=== PATIENT | male | born 1950 | race Caucasian/White ===

== ENCOUNTER 2017-11-29 06:22 | Emergency (ER) | payer OTHER, MEDICARE ==
[2017-11-29 07:22] VITALS: TEMP 98.4; BMI 19.1
--- NOTE | 2017-11-29 07:26 | PDOC ---
Attending Attestation - HPI HPI: 11/29/17 07:47 The patient is a 67 year old male, with a significant past medical history of mitral valve prolapse repair(1 month ago), hyperlipidemia, and depression, who presents to the emergency department with right sided chest pain at surgical incision site for approximately 3 hours. Patient reports he had a mitral valve prolapse repair, about 1 month ago, where a ring was put in for stabilization. Patient reports associated pain at surgical incision site since waking up this morning. He reports taking Tramadol for his symptoms with minimal relief. He denies any shortness of breath, diaphoresis, palpitations, or lower extremity edema. He denies any nausea or vomiting. He denies any fever or chills. He denies any recent travel or sick contacts. Patient reports following up at [facility] 1 week ago, where he had an ECG, which was notable for AFib(patient is on blood thinners). Allergies: NKDA Past Surgical History: Mitral Valve Prolapse Repair(10/28/17) Social History: Social ETOH use. Non smoker. No recreational drug use. - Medical Decision Making 11/29/17 07:47 Documentation prepared by Carleen Patiño, acting as medical claims assistant for Luda Gil MD. <Carleen Patiño - Last Filed: 11/29/17 07:57> - Resident Resident Name: Shay Alva - ED Attending Attestation I have performed the following: I have examined & evaluated the patient, The case was reviewed & discussed with the resident, I agree w/resident's findings & plan, Exceptions are as noted - Physicial Exam PE: GENERAL: Awake, alert, and fully oriented, in no acute distress. Appears uncomfortable. HEAD: No signs of trauma EYES: PERRLA, EOMI, sclera anicteric, conjunctiva clear ENT: Auricles normal inspection, hearing grossly normal, nares patent, oropharynx clear without exudates. Moist mucosa NECK: Normal ROM, supple, no lymphadenopathy, JVD, or masses LUNGS: Breath sounds equal, clear to auscultation bilaterally. No wheezes, and no crackles. +Healing lesions to the R chest, no tenderness at the surgical sites, no skin changes. HEART: Regular rate and rhythm, normal S1 and S2, no murmurs, rubs or gallops ABDOMEN: Soft, nontender, normoactive bowel sounds. No guarding, no rebound. No masses EXTREMITIES: Normal range of motion, no edema. No clubbing or cyanosis. No cords, erythema, or tenderness NEUROLOGICAL: Cranial nerves II through XII grossly intact. Normal speech, normal gait. Motor and sensation intact. SKIN: Warm, Dry, normal turgor, no rashes or lesions noted. - Medical Decision Making Case d/w covering physician at [facility]. Will obtain echo, CXR, labs in ED. Will give him his morning meds. Will recall [facility] once all results are complete. <Luda Gil - Last Filed: 11/29/17 10:15> Heart Score/ECG Review - ECG Impressions Comment:: EKG read 07:39- tachycardic 113 bpm, poss atrial flutter (rhythm somewhat obscured by tachycardia) <Luda Gil - Last Filed: 11/29/17 10:15>
--- NOTE | 2017-11-29 07:26 | PDOC ---
History of Present Illness - General Chief Complaint: Chest Pain Stated Complaint: RIGHT SIDE PAIN Time Seen by Provider: 11/29/17 07:24 - History of Present Illness Initial Comments: 11/29/17 07:24 Mr. Kumar is a 67 yo male w/ pmh of mitral valve repair (10/28/17 after MVP with resulting afib), HTN, HLD who presents complaining of 1 day history of right sided chest pain after waking up this morning. He reports it hurts under one of his incision sites as of today. The patient denies shortness of breath, headache and dizziness. Denies fever, chills, nausea, vomit, diarrhea and constipation. Denies dysuria, frequency, urgency and hematuria. Allergies: NKDA Past History - Past Medical History Allergies/Adverse Reactions: Allergies Allergy/AdvReac Type Severity Reaction Status Date / Time No Known Allergies Allergy Verified 11/29/17 07:15 Home Medications: Ambulatory Orders Amiodarone HCl [Cordarone -] 200 mg PO DAILY 11/29/17 Methylprednisolone [Medrol -] 4 mg PO ASDIR #20 tablet 11/29/17 Metoprolol Succinate [Toprol Xl -] 50 mg PO DAILY 11/29/17 Tramadol HCl [Ultram] 50 mg PO Q8H PRN 11/29/17 COPD: No Hypercholesterolemia: Yes Psychiatric Problems: Yes (depression) - Surgical History Cardiac Surgery: Yes (mitral valve repair-1 month ago) - Suicide/Smoking/Psychosocial Hx Smoking History: Never smoked Hx Alcohol Use: Yes (SOCIAL) Review of Systems - Review of Systems Comments:: 11/29/17 07:25 GENERAL/CONSTITUTIONAL: No fever or chills. No weakness. HEAD, EYES, EARS, NOSE AND THROAT: No change in vision. No ear pain or discharge. No sore throat. CARDIOVASCULAR: +Right sided chest pain as described. No shortness of breath RESPIRATORY: No cough, wheezing, or hemoptysis. GASTROINTESTINAL: No nausea, vomiting, diarrhea or constipation. GENITOURINARY: No dysuria, frequency, or change in urination. MUSCULOSKELETAL: No joint or muscle swelling or pain. No neck or back pain. SKIN: No rash NEUROLOGIC: No headache, vertigo, loss of consciousness, or change in strength/ sensation. ENDOCRINE: No increased thirst. No abnormal weight change HEMATOLOGIC/LYMPHATIC: No anemia, easy bleeding, or history of blood clots. ALLERGIC/IMMUNOLOGIC: No hives or skin allergy. *Physical Exam - Vital Signs Last Vital Signs Temp Pulse Resp BP Pulse Ox 98.4 F 101 H 19 112/64 99 11/29/17 07:15 11/29/17 07:15 11/29/17 07:15 11/29/17 07:15 11/29/17 07:15 - Physical Exam Comments: 11/29/17 07:25 GENERAL: Awake, alert, and fully oriented, in no acute distress HEAD: No signs of trauma, normocephalic, atraumatic EYES: PERRLA, EOMI, sclera anicteric, conjunctiva clear ENT: Auricles normal inspection, hearing grossly normal, nares patent, oropharynx clear without exudates. Moist mucosa NECK: Normal ROM, supple, no lymphadenopathy, JVD, or masses LUNGS: No distress, speaks full sentences, clear to auscultation bilaterally HEART: Regular rate and rhythm, normal S1 and S2, no murmurs, rubs or gallops, peripheral pulses normal and equal bilaterally. ABDOMEN: Soft, nontender, normoactive bowel sounds. No guarding, no rebound. No masses EXTREMITIES: Normal inspection, Normal range of motion, no edema. No clubbing or cyanosis. NEUROLOGICAL: Cranial nerves II through XII grossly intact. Normal speech, normal gait, no focal sensorimotor deficits SKIN: Warm, Dry, normal turgor, no rashes or lesions noted. ED Treatment Course - LABORATORY CBC & Chemistry Diagram: 11/29/17 15:11 11/29/17 07:57 Medical Decision Making - Medical Decision Making 11/29/17 15:37 Mr. Kumar is a 67 yo male w/ pmh as described who presents for evaluation of chest pain in the setting of recent cardiac surgery. Patient initial labs concerning for elevated WBC to 15.8. Echocardiogram and Chest CT ordered for evaluation along with blood cultures. Patient CT surgeon consulted as well at [phone] (Dr. Márquez). Echo and Chest CT negative for acute process. EKG normal. Repeat labs improved as below. CT surgeon's office suggested steroid course for pericardial symptoms and outpatient follow-up. Complying with this course of action given patient's stable status, good clinical exam, and reassuring repeat labs. *DC/Admit/Observation/Transfer Diagnosis at time of Disposition: Chest pain Qualifiers: Chest pain type: unspecified Qualified Code(s): R07.9 - Chest pain, unspecified - Discharge Dispostion Disposition: HOME - Prescriptions Prescriptions: Methylprednisolone [Medrol -] 4 mg PO ASDIR #20 tablet - Referrals Referrals: ON STAFF,NOT [Primary Care Provider] - - Patient Instructions Printed Discharge Instructions: DI for Atypical Chest Pain Additional Instructions: Please follow-up with Cardiothoracic surgeon for further evaluation. Return to ER if pain continues, increases, or you experience fever, chills, or other concerning symptoms. We hope you feel better soon. - Post Discharge Activity
[2017-11-29] MEDS ORDERED: morphine CARPU-JECT 2 MG/1 ML DISP.SYRIN IVPUSH ONE (07:47)
[2017-11-29] MEDS ORDERED: ONDANSETRON 4 MG/2 ML VIAL IVPUSH ONE (07:50)
[2017-11-29] MEDS ORDERED: SODIUM CHLORIDE 1,000 ML IV STA (07:51)
[2017-11-29] MEDS ORDERED: AMIODARONE HCL 200 MG TABLET (FP) PO ONE (07:57)
[2017-11-29] MEDS ORDERED: ONDANSETRON 4 MG/2 ML VIAL ONE (08:06)
[2017-11-29] MEDS ORDERED: morphine CARPU-JECT 2 MG/1 ML DISP.SYRIN ONE (08:06)
[2017-11-29] MEDS ORDERED: AMIODARONE HCL 200 MG TABLET (FP) ONE (08:06)
[2017-11-29 08:34] LABS: BASO % 0.6 % (0-2.0); EOS % 2.8 % (0-4.5); HEMATOCRIT 40.9 % (35.4-49); MCH 31.8 pg (25.7-33.7); MCHC 34.1 g/dl (32.0-35.9); MEAN CELL VOLUME 93.2 fl (80-96); MEAN PLT VOLUME 8.1 fl (7.5-11.1); MONO % 10.1 % (3.8-10.2); NEUT % 80.5 % (42.8-82.8); PLATELET COUNT 181 K/MM3 (134-434); RBC 4.39 M/mm3 (4.00-5.60); RDW 13.3 % (11.9-15.9); WHITE BLOOD COUNT 15.8 K/mm3 (4.0-10.0)
[2017-11-29 08:58] LABS: ALBUMIN 3.5 g/dl (3.4-5.0); ANION GAP 6 (8-16); BILIRUBIN,TOTAL 1.2 mg/dL (0.2-1.0); BLOOD UREA NITROGEN 23 mg/dL (7-18); CALCIUM 8.8 mg/dL (8.5-10.1); CHLORIDE 108 mmol/L (98-107); CO2 28 mmol/L (21-32); CREATININE 1.3 mg/dL (0.7-1.3); GLUCOSE,RANDOM 95 mg/dL (74-106); SGPT/ALT 55 U/L (12-78); SODIUM 142 mmol/L (136-145); TOT PROT 6.7 g/dl (6.4-8.2)
[2017-11-29 09:01] LABS: ALK PHOS 113 U/L (45-117)
[2017-11-29 09:05] LABS: POTASSIUM 5.2 mmol/L (3.5-5.1); SGOT/AST 26 U/L (15-37)
--- NOTE | 2017-11-29 11:20 | EKG ---
Test Reason : Blood Pressure : / mmHG Vent. Rate : 113 BPM Atrial Rate : 242 BPM P-R Int : 000 ms QRS Dur : 112 ms QT Int : 364 ms P-R-T Axes : 000 -06 024 degrees QTc Int : 499 ms ATRIAL FLUTTER WITH VARIABLE A-V BLOCK ABNORMAL ECG NO PREVIOUS ECGS AVAILABLE Confirmed by RIMA LANIER MD ([id number]) on 11/29/2017 11:20:00 AM Referred By: Confirmed By:RIMA LANIER MD
[2017-11-29 12:19] VITALS: BP 125/73; PULSE 83
[2017-11-29 15:29] LABS: EOS % 3.8 % (0-4.5); HEMATOCRIT 39.1 % (35.4-49); HEMOGLOBIN 13.2 GM/dL (11.7-16.9); LYMPH % 14.6 % (8-40); MCH 31.4 pg (25.7-33.7); MCHC 33.7 g/dl (32.0-35.9); MEAN CELL VOLUME 93.1 fl (80-96); MEAN PLT VOLUME 8.2 fl (7.5-11.1); MONO % 12.2 % (3.8-10.2); NEUT % 68.4 % (42.8-82.8); PLATELET COUNT 178 K/MM3 (134-434); RDW 13.4 % (11.9-15.9); WHITE BLOOD COUNT 8.2 K/mm3 (4.0-10.0)
[2017-11-29] MEDS ORDERED: methylPREDNISolone 8 MG TABLET PO ONE (15:45)
== END 2017-11-29 16:47 | disposition home or self-care (01) ==
LOC: JER 06:22
PROC: 3E0337Z Introduction of Electrolytic and Water Balance Substance into Peripheral Vein, Percutaneous Approach (ICD-10-PCS; principal; 2017-11-29)
PROC: 3E033GC Introduction of Other Therapeutic Substance into Peripheral Vein, Percutaneous Approach (ICD-10-PCS; 2017-11-29)
PROC: 3E033NZ Introduction of Analgesics, Hypnotics, Sedatives into Peripheral Vein, Percutaneous Approach (ICD-10-PCS; 2017-11-29)
DX: R07.89 Other chest pain (principal); I10 Essential (primary) hypertension; E78.00 Pure hypercholesterolemia, unspecified; F32.9 Major depressive disorder, single episode, unspecified; Z98.890 Other specified postprocedural states
CPT/HCPCS: 36415; 71260-TC; 80053; 82550; 84484; 85025; 87040; 93005; 93010; 93306-TC; 96361; 96374; 96375; 99285-25; J7030

== ENCOUNTER 2019-04-30 10:49 | Emergency (ER) | payer OTHER, MEDICARE ==
[2019-04-30 10:54] VITALS: BMI 20.2
[2019-04-30 11:14] LABS: BASO % 0.9 % (0-2.0); EOS % 3.4 % (0-4.5); HEMATOCRIT 43.2 % (35.4-49); HEMOGLOBIN 15.3 GM/dL (11.7-16.9); LYMPH % 28.7 % (8-40); MCH 32.5 pg (25.7-33.7); MCHC 35.3 g/dl (32.0-35.9); MEAN CELL VOLUME 92.1 fl (80-96); MEAN PLT VOLUME 7.8 fl (7.5-11.1); MONO % 13.4 % (3.8-10.2); NEUT % 53.6 % (42.8-82.8); PLATELET COUNT 248 K/MM3 (134-434); RBC 4.69 M/mm3 (4.00-5.60); RDW 12.9 % (11.9-15.9); WHITE BLOOD COUNT 6.1 K/mm3 (4.0-10.0)
[2019-04-30 11:30] LABS: INR 0.95 (0.83-1.09); PROTHROMBIN TIME (PATIENT) 11.2 SEC (9.7-13.0)
[2019-04-30 11:40] LABS: ALBUMIN 3.8 g/dl (3.4-5.0); BILIRUBIN,TOTAL 0.8 mg/dL (0.2-1); BLOOD UREA NITROGEN 20.9 mg/dL (7-18); CALCIUM 9.3 mg/dL (8.5-10.1); CREATININE 1.1 mg/dL (0.55-1.3); POTASSIUM 4.6 mmol/L (3.5-5.1); TOT PROT 6.9 g/dl (6.4-8.2)
--- NOTE | 2019-04-30 11:49 | PDOC ---
History of Present Illness - General Chief Complaint: Blurry Vision Stated Complaint: VISION Time Seen by Provider: 04/30/19 11:00 History Source: Patient Exam Limitations: No Limitations - History of Present Illness Initial Comments: 04/30/19 17:11 HPI: 68M PMH HTN, MVP s/p MV repair, pAfib presenting after experiencing an episode of vision "being out of focus" yesterday around 6pm. Symptoms resolved on its own after less than 5 minutes where the patient noticed that when he covered either eye the symptoms would improve. Denies loss of visual field, headache, lightheadedness, dizziness, numbness, tingling, weakness, changes in hearing. Denies cp/sob, f/c, n/v. Pt was recently discontinued off eliquis a few weeks by his wound care physician (Dr. Sudarshan Cardoza, [facility]). Pt states he has had a prior episodes of similar symptoms a few months ago while on eliquis. PMH: as above. Lasix 15 years ago, wears glasses for reading and sports MEDs: per chart, Started meloxicam 2 days ago for foot pain. NKDA PCP - [place] provider w/ office in the [place] NIH Stroke Scale - Last Known Well Date/Time & Onset Date Last Known Well: 04/29/19 Time Last Known Well: 18:00 (sx resolved ) - Initial Evaluation Level of consciousness: Alert Ask patient the month and their age: Answers both correctly Ask patient to open & close eyes; make fist and let go: Obeys both correctly Best gaze (horizontal eye movement): Normal Visual field testing: No visual field loss Facial paresis (Show teeth/raise eyebrows/close eyes tight): Normal symmetrical movement Motor Function: Left Arm: Normal Motor Function: Right Arm: Normal (extends arm 90 (or 45) degrees for 10 seconds without drift Motor Function: Left Leg: Normal (extends leg 30 degrees for 5 seconds without drift) Motor Function: Right Leg: Normal (extends leg 30 degrees for 5 seconds without drift) Limb Ataxia: No ataxia Sensory(Use pinprick test arms,legs,trunk,face/side to side): Normal Best language (Describe picture, name items, read sentences): No Aphasia Dysarthria (read several words): Normal articulation Extinction and Inattention: No abnormality - Total Score NIH Stroke Scale Score: 0 Past History - Past Medical History Allergies/Adverse Reactions: Allergies Allergy/AdvReac Type Severity Reaction Status Date / Time No Known Allergies Allergy Verified 04/30/19 10:54 Home Medications: Ambulatory Orders Amiodarone HCl [Cordarone -] 200 mg PO DAILY 11/29/17 Methylprednisolone [Medrol -] 4 mg PO ASDIR #20 tablet 11/29/17 Metoprolol Succinate [Toprol Xl -] 50 mg PO DAILY 11/29/17 Tramadol HCl [Ultram] 50 mg PO Q8H PRN 11/29/17 Meloxicam 15 mg PO DAILY 04/30/19 COPD: No Hypercholesterolemia: Yes Psychiatric Problems: Yes (depression) - Surgical History Cardiac Surgery: Yes (mitral valve repair-1 month ago) - Psycho Social/Smoking Cessation Hx Smoking History: Never smoked Information on smoking cessation initiated: No Hx Alcohol Use: Yes (SOCIAL) Review of Systems - Review of Systems Able to Perform ROS?: Yes Comments:: 04/30/19 17:12 ROS: CONSTITUTIONAL: Denies F / C HEENT: Endorses change in vision. Denies headache, lightheadedness, dizziness, changes in hearing RESP: Denies SOB CARD: Denies chest pain, palpitations GI: Denies N / V / D, abdominal pain, bloody stool : Denies dysuria, frequency NEURO: Denies numbness, tingling, weakness Is the patient limited Swedish proficient: No *Physical Exam - Vital Signs Last Vital Signs Temp Pulse Resp BP Pulse Ox 97.8 F 67 18 140/75 98 04/30/19 10:51 04/30/19 10:51 04/30/19 10:51 04/30/19 10:51 04/30/19 10:51 - Physical Exam Comments: 04/30/19 17:12 PE: GEN: Well appearing, NAD, comfortable. AAOx3 HEENT: NC/AT. CN II-XII intact, EOMI, PERRLA. Visual reis intact. No facial asymmetry. Normal voice. Supple neck w/ FROM. CV: S1/S2, RRR, no m/r/g LUNG: CTAB, no wheezes, crackles, rales, rhonchi. GI: soft, ndnt, +BS, no guarding, no rebound. EXTREMITIES: No LE edema. No obvious deformities of all extremities. SKIN: warm, dry, normal turgor PSYCH: normal mood and affect NEURO: 10/30 UE LE b/l strength. Symmetric sensation throughout. No pronator drift. Neg Romberg. No FTN or heel-walden ataxia. Ambulates w/ normal gait. ED Treatment Course - LABORATORY CBC & Chemistry Diagram: 04/30/19 11:00 04/30/19 11:00 - ADDITIONAL ORDERS Additional order review: Laboratory Results 04/30/19 11:00 PT with INR 11.20 INR 0.95 04/30/19 11:00 RBC 4.69 MCV 92.1 MCHC 35.3 RDW 12.9 MPV 7.8 Neutrophils % 53.6 D Lymphocytes % 28.7 D Monocytes % 13.4 H Eosinophils % 3.4 Basophils % 0.9 - RADIOLOGY Radiology Studies Ordered: Category Date Time Status HEAD CT WITHOUT CONTRAST [CT] Stat CT Scan 04/30/19 11:35 Ordered Medical Decision Making - Medical Decision Making 04/30/19 11:40 MDM: 68M presenting a day after having a 5 minute episode of self-resolving visual symptoms consistent w/ diplopia. DDx - TIA, central cause vs peripheral - NIHSS = 0 - EKG - CT head - labs - contact cardiology 04/30/19 13:05 labs reviewed EKG 04/30/19 11:42 HR 59 WV 166 QRS 104 QTc 415 Sinus bradycardia call placed out to [facility] cardiology 04/30/19 13:10 Discussed pt w/ [place] Dr. Taylor covering for Dr. Cardoza - pt should call Dr. Cardoza the next day for f/u - pt should consider restarting eliquis 04/30/19 13:28 Discussed pt w/ Neurologist Dr. Gunderson - he will see patient - given normal neurologic exam no role for admission - restart eliquis - carotid doppler 04/30/19 16:43 After initial conversation w/ Dr. Gunderson, ED team was unable to reach him despite multiple calls out ED team felt that observation was necessary at this junction Pt refused admission and will leave against medical advice Patient is determined to be of sound mind and reasoning. The patient fully understands the care they are refusing and the risks associated with leaving before complete medical evaluation as explained by the medical team. The patient has been provided with a discharge summary, return precautions, and the reassurance that the Emergency Department will resume workup if the patient changes their mind. Immediate primary care and cardiology follow up has been urged. 04/30/19 17:08 ED team discussed yuliya w/ Dr Gunderson who stated that he was going to follow up with the patient in his office Discussed cody w/ patient who states he has some leftover and will contact his wound care physician tomorrow before restarting citing concerns that he is on NSAIDs for pain at the moment. Patient left AMA, see above. Discharge - Discharge Information Problems reviewed: Yes Clinical Impression/Diagnosis: Change in vision Condition: Stable Disposition: AGAINST MEDICAL ADVICE - Admission No - Follow up/Referral Referrals: Delon Gunderson MD [Staff Physician] - - Patient Discharge Instructions Patient Printed Discharge Instructions: DI for Visual Field Disturbances Additional Instructions: You are leaving against medical advice and refusing the complete evaluation of your change in vision The risks of doing so have been explained to you by the Emergency Team You may return to the Emergency Department at anytime to complete your evaluation IT IS IMPORTANT THAT YOU FOLLOW UP WITH YOUR ACTIVITY SPECIALIST IN THE NEXT 1 DAY. We have provided you a referral to the Neurologist, please schedule a follow up appointment in the next 3-5 days. Follow up with your primary care doctor regarding this ED visit in the next 3-5 days. Immediately return to the closest Emergency Department if you experience new, worsening, or concerning symptoms. - Post Discharge Activity
--- NOTE | 2019-04-30 12:10 | PDOC ---
Documentation entered by Javier Conner SCRIBE, acting as scribe for Jacob Roa MD. Jacob Roa MD: This documentation has been prepared by the Ubaldo muller Daniel, SCRIBE, under my direction and personally reviewed by me in its entirety. I confirm that the documentation accurately reflects all work, treatment, procedures, and medical decision making performed by me. Attending Attestation - Resident Resident Name: Delon Morel - ED Attending Attestation I have performed the following: I have examined & evaluated the patient, The case was reviewed & discussed with the resident, I agree w/resident's findings & plan, Exceptions are as noted - HPI HPI: 04/30/19 11:57 The patient is a 68 year old male with a past medical history of HTN, mitral valve prolapse s/p repair, and afib (previously on eliquis) here today for evaluation of vision problems. The patient reports that yesterday around 6 PM he had a sudden onset of his eyes not working together that lasted for 5 minutes. He states that he didnt have blurry or double vision but felt like his eyes were crossed. He reports that covering one eye relieved his symptoms somewhat. He notes one prior episode of similar symptoms 2 months ago. Patient denies headache, lightheadedness. Denies fever, chills. Denies chest pain, shortness of breath. Denies nausea, vomiting, diarrhea, abdominal pain. Denies neurological symptoms. Allergies: NKA - Physicial Exam PE: 04/30/19 11:54 GENERAL: The patient is awake, alert, and fully oriented, Nontoxic - in no acute distress. HEAD: Normocephalic, atraumatic. EYES: extraocular movements intact, visual reis intact, sclera anicteric, conjunctiva clear. ENT: Normal voice, Moist mucous membranes. NECK: Normal range of motion, supple LUNGS: Breath sounds equal, clear to auscultation bilaterally. No wheezes, no rhonchi, no rales. HEART: Regular rate and rhythm, normal S1 and S2 without murmur, rub or gallop. ABDOMEN: Soft, nontender, No guarding, no rebound. No CVA tenderness EXTREMITIES: Normal range of motion, no edema. NEUROLOGICAL: No facial assymetry, Normal speech, moving al 4 extremities spontaneously and symmetrically, normal gait. PSYCH: Normal mood, normal affect. SKIN: Warm, Dry, normal turgor, - Medical Decision Making 04/30/19 11:55 consider possible TIA due to recent hx of afib and being taken off eliquis pt curent asymptomatic with normal neuro exam. not tpa candidate 04/30/19 13:39 pts labs were viewed pt continues to be asympomatic case dw with covering cardioloist had mentioned pt was taken off a/c due to neg afib on outpatient monitorring, however unclear reasoning. case dw neurology - dr valero will come evaluate the pt re dispo Heart Score/ECG Review - ECG Impressions Comment:: 04/30/19 13:07 Twelve-lead EKG was performed and reviewed by me. There is normal sinus rhythm with rate of 59 normal axis The intervals are normal. There is normal R wave progression There are no ST or T wave abnormalities. Impression: sinus bradycadia
[2019-04-30 16:09] VITALS: BP 143/72; PULSE 89; TEMP 98.4
--- NOTE | 2019-05-01 10:08 | EKG ---
Test Reason : Blood Pressure : / mmHG Vent. Rate : 059 BPM Atrial Rate : 059 BPM P-R Int : 166 ms QRS Dur : 104 ms QT Int : 420 ms P-R-T Axes : 056 018 026 degrees QTc Int : 415 ms SINUS BRADYCARDIA OTHERWISE NORMAL ECG WHEN COMPARED WITH ECG OF 29-NOV-2017 07:25, SINUS RHYTHM HAS REPLACED ATRIAL FLUTTER VENT. RATE HAS DECREASED BY 54 BPM Confirmed by YANNICK ARROYO, RIMA ([id number]) on 05/01/2019 10:07:41 AM Referred By: Confirmed By:RIMA LANIER MD
== END 2019-04-30 17:05 | disposition left against medical advice (07) ==
LOC: JER 10:49
DX: H53.8 Other visual disturbances (principal); H53.2 Diplopia; I10 Essential (primary) hypertension; I48.91 Unspecified atrial fibrillation; E78.00 Pure hypercholesterolemia, unspecified; F32.9 Major depressive disorder, single episode, unspecified; Z95.4 Presence of other heart-valve replacement; Z98.890 Other specified postprocedural states
CPT/HCPCS: 36415; 70450-TC; 80053; 85025; 85610; 93005; 93010; 99282-25

== ENCOUNTER 2021-07-14 17:10 | Inpatient (IN) | payer OTHER, MEDICARE ==
[2021-07-14 17:27] VITALS: BMI 20.7
[2021-07-14] MEDS ORDERED: ASPIRIN 81 MG CHEWABLE TABLETS PO ONE (18:23)
[2021-07-14] MEDS ORDERED: ASPIRIN 81 MG CHEWABLE TABLETS ONE (18:30)
[2021-07-14 18:37] LABS: BASO % 0.6 % (0-2.0); EOS % 2.6 % (0-4.5); HEMATOCRIT 41.8 % (35.4-49); HEMOGLOBIN 14.1 GM/dL (11.7-16.9); LYMPH % 27.7 % (8-40); MCH 31.1 pg (25.7-33.7); MCHC 33.8 g/dl (32.0-35.9); MEAN CELL VOLUME 92.1 fl (80-96); MEAN PLT VOLUME 7.9 fl (7.5-11.1); MONO % 11.5 % (3.8-10.2); NEUT % 57.6 % (42.8-82.8); PLATELET COUNT 216 10^3/uL (134-434); RBC 4.54 M/mm3 (4.00-5.60); RDW 13.3 % (11.9-15.9); WHITE BLOOD COUNT 6.4 K/mm3 (4.0-10.0)
[2021-07-14 18:53] LABS: INR 1.07 (0.83-1.09); PROTHROMBIN TIME (PATIENT) 12.3 SEC (9.7-13.0)
[2021-07-14 18:54] LABS: CHLORIDE 105 mmol/L (98-107); SODIUM 139 mmol/L (136-145)
[2021-07-14 18:55] LABS: ACTIVATED PTT 27.8 SECONDS (25.2-36.5)
[2021-07-14 18:56] LABS: ALBUMIN 3.6 g/dl (3.4-5.0); CALCIUM 9.4 mg/dL (8.5-10.1)
[2021-07-14 18:57] LABS: ANION GAP 6 MMOL/L (8-16); BLOOD UREA NITROGEN 21.3 mg/dL (7-18); CO2 28 mmol/L (21-32); GLUCOSE,RANDOM 88 mg/dL (74-106)
[2021-07-14 18:59] LABS: CHOLESTEROL 159 mg/dL (50-200); SGOT/AST 11 U/L (15-37); SGPT/ALT 17 U/L (13-61); TRIGLYCERIDES 47 mg/dL (0-150)
[2021-07-14 19:01] LABS: BILIRUBIN,TOTAL 0.8 mg/dL (0.2-1); LDL CHOLESTEROL (ONLY SJRH) 90 mg/dL (5-100); TOT PROT 6.5 g/dl (6.4-8.2)
[2021-07-14 19:02] LABS: ALK PHOS 65 U/L (45-117); HDL CHOLESTEROL 60 mg/dL (40-60)
[2021-07-14 20:52] VITALS: BP 112/68; PULSE 63; TEMP 97.1
[2021-07-14 21:07] LABS: PH,URINE 6.5 (5.0-8.0); URINE APPEARANCE CLEAR; URINE BILIRUBIN NEGATIVE (NEGATIVE); URINE COLOR YELLOW; URINE GLUCOSE (UA) NEGATIVE (NEGATIVE); URINE KETONE NEGATIVE (NEGATIVE); URINE LEUK ESTERASE NEGATIVE (NEGATIVE); URINE NITRITE NEGATIVE (NEGATIVE); URINE PROTEIN NEGATIVE (NEGATIVE); URINE UROBILINOGEN 0.2 mg/dL (0.2-1.0)
== END 2021-07-14 21:59 | disposition left against medical advice (07) | DRG 125 ==
LOC: JER 17:10 → JERBED 18:14
PROVIDERS: ADMIT Internal Medicine; ATTEND Internal Medicine
DX: H53.8 Other visual disturbances (principal); Z95.2 Presence of prosthetic heart valve; E78.5 Hyperlipidemia, unspecified; F32.A Depression, unspecified; Z53.29 Procedure and treatment not carried out because of patient's decision for other reasons
CPT/HCPCS: 36415; 70450-TC; 70545-TC; 70551-TC; 80053; 80061; 81003; 82550; 83036; 84484; 85025; 85610; 85730; 86850; 86900; 86901; 93005; 93010; 99285-25; A9579; C1887; C9803; U0003; U0005

== ENCOUNTER 2023-04-09 13:02 | Emergency (ER) | payer OTHER, MEDICARE ==
[2023-04-09 13:10] VITALS: BP 118/62; PULSE 69; RESP 16; TEMP 98.3; BMI 20.7
[2023-04-09 14:54] LABS: PH,URINE 5.5 (5.0-8.0); URINE APPEARANCE CLEAR; URINE BILIRUBIN NEGATIVE (NEGATIVE); URINE COLOR YELLOW; URINE GLUCOSE (UA) NEGATIVE (NEGATIVE); URINE KETONE TRACE (NEGATIVE); URINE LEUK ESTERASE NEGATIVE (NEGATIVE); URINE NITRITE NEGATIVE (NEGATIVE); URINE PROTEIN NEGATIVE (NEGATIVE); URINE UROBILINOGEN 0.2 mg/dL (0.2-1.0)
[2023-04-09 14:55] LABS: BASO % 0.9 % (0-2.0); EOS % 1.8 % (0-4.5); HEMATOCRIT 39.8 % (35.4-49); LYMPH % 30.5 % (8-40); MCH 31.2 pg (25.7-33.7); MCHC 35.1 g/dl (32.0-35.9); MEAN CELL VOLUME 88.8 fl (80-96); MEAN PLT VOLUME 7.1 fl (7.5-11.1); MONO % 15.6 % (3.8-10.2); NEUT % 51.2 % (42.8-82.8); PLATELET COUNT 265 10^3/uL (134-434); RBC 4.48 M/mm3 (4.00-5.60); RDW 13.4 % (11.9-15.9); WHITE BLOOD COUNT 7.5 K/mm3 (4.0-10.0)
[2023-04-09 15:02] LABS: INR 1.03 (0.83-1.09); PROTHROMBIN TIME (PATIENT) 11.9 SEC (9.7-13.0)
[2023-04-09 15:05] LABS: ACTIVATED PTT 29.5 SECONDS (25.2-36.5)
[2023-04-09 15:15] LABS: POTASSIUM 4.4 mmol/L (3.5-5.1)
[2023-04-09 15:17] LABS: CALCIUM 8.9 mg/dL (8.5-10.1)
[2023-04-09 15:18] LABS: ALBUMIN 3.6 g/dl (3.4-5.0); BLOOD UREA NITROGEN 26.4 mg/dL (7-18)
[2023-04-09 15:21] LABS: CREATININE 1.1 mg/dL (0.55-1.3)
[2023-04-09 15:23] LABS: BILIRUBIN,TOTAL 0.7 mg/dL (0.2-1); TOT PROT 6.7 g/dl (6.4-8.2)
== END 2023-04-09 21:36 | disposition home or self-care (01) ==
LOC: JER 13:02
DX: R42 Dizziness and giddiness (principal)
CPT/HCPCS: 36415; 70450-TC; 71045-TC-FY; 80053; 81003; 84484; 85025; 85610; 85730; 86850; 86900; 86901; 93005; 93010; 99285-25